=== PATIENT | female | born 1965 | race African-American/Black ===

== ENCOUNTER 2021-12-03 11:46 | Emergency (ER) | payer OTHER, MEDICAID ==
[~2021-12-03] VITALS: Ht 175.3 cm; Wt 39.0 kg
[2021-12-03 15:22] LABS: CHLORIDE 109 mEq/L (98-107)
[2021-12-03 16:10] VITALS: BP 111/78
== END 2021-12-03 16:33 | disposition home or self-care (01) ==
LOC: ER 11:46
DX: G40.909 Epilepsy, unspecified, not intractable, without status epilepticus (principal); I10 Essential (primary) hypertension
CPT/HCPCS: 36415; 80048; 82962; 93005; 99284

== ENCOUNTER 2024-08-14 14:07 | Emergency (ER) | payer OTHER, MEDICAID ==
[~2024-08-14] VITALS: Ht 165.1 cm; Wt 41.0 kg
[2024-08-14 14:11] VITALS: O2SAT 98
[2024-08-14 15:53] LABS: CALCIUM 9.6 mg/dL (8.7-10.4); CARBON DIOXIDE 24 mEq/L (21-32); CHLORIDE 107 mEq/L (98-107); POTASSIUM 3.8 mEq/L (3.5-5.1); SODIUM 138 mEq/L (136-145)
[2024-08-14 15:58] LABS: CREATININE 0.9 mg/dL (0.6-1.0)
[2024-08-14 16:00] LABS: ETHANOL BLOOD < 10 mg/dL (<10); GLUCOSE 111 mg/dL (70-105); UREA NITROGEN BLOOD 15 mg/dL (9-23)
[2024-08-14 16:07] LABS: HEMATOCRIT. 41.1 % (36.0-48.0); HEMOGLOBIN. 12.8 g/dL (12.0-16.0); MEAN CORPUSCULAR HEMOGLOBIN 29.4 pg (28.0-32.0); MEAN CORPUSCULAR HGB CONC 31.2 g/dL (31.0-37.0); MEAN CORPUSCULAR VOLUME 94.2 fL (81.0-99.0); MEAN PLATELET VOLUME 10.1 fl (7.4-10.4); PLATELET 106 x1000/uL (130-400); RED BLOOD CELL COUNT 4.37 mill/uL (4.2-5.4); RED CELL DISTRIBUTION WIDTH 14.3 % (11.6-14.6); WHITE BLOOD COUNT 6.6 x1000/uL (4.5-11.0)
[2024-08-14 16:09] LABS: DIFFERENTIAL COMMENT 1
[2024-08-14] MEDS ORDERED: LEVETIRACETAM 500MG TABLET PO ONE (16:30)
[2024-08-14 16:46] VITALS: BP 120/77; PULSE 80; RESP 18; TEMP 36.8; O2SAT 98
[2024-08-14 17:15] LABS: GIANT PLATELETS FEW; PLATELET ESTIMATE SLIGHTLY DECREASED
== END 2024-08-14 16:54 | disposition home or self-care (01) ==
LOC: ER 14:07
DX: G40.909 Epilepsy, unspecified, not intractable, without status epilepticus (principal); I10 Essential (primary) hypertension; F19.90 Other psychoactive substance use, unspecified, uncomplicated; Z98.890 Other specified postprocedural states
CPT/HCPCS: 36415; 80048; 80320; 85025; 99284; A4606; G0480